=== PATIENT | female | born 1980 | race Caucasian/White ===

== ENCOUNTER → 2020-12-11 | Outpatient (CLI) | payer BC | LOC: KOH-I 08:00 | DX: E03.9 Hypothyroidism, unspecified (principal); E07.9 Disorder of thyroid, unspecified | CPT/HCPCS: 76536 ==

== ENCOUNTER → 2020-12-26 | Outpatient (CLI) | payer BC | LOC: CT 12-25 08:30 | DX: R22.0 Localized swelling, mass and lump, head (principal); R22.1 Localized swelling, mass and lump, neck | CPT/HCPCS: 70491; Q9967 ==

== ENCOUNTER → 2022-03-15 | Outpatient (CLI) | payer BC | LOC: CATH 09:52 | DX: R55 Syncope and collapse (principal) ==